=== PATIENT | male | born 1970 | race American Indian/Alaskan Native ===

== ENCOUNTER 2019-07-10 12:28 | Emergency (ER) | payer BC, MEDICAID ==
[2019-07-10 14:42] VITALS: BP 140/88
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
--- NOTE | 2019-07-10 16:04 | CRLCR ---
Indication: Pain. Technique: Three views of the left foot were obtained. Comparison: None Findings: Postoperative changes are identified at the level the calcaneus, distal 4th metatarsal and proximal 1st metatarsal. Around the distal 4th metatarsal, linear lucencies identified. Periosteal reaction is identified. This most likely all represents postoperative change. Extensive vascular calcifications are identified. Impression: Periosteal reaction and lucency identified around the screw at the level of the distal 4th metatarsal. This is most likely are related to post operative change. However, correlation with patient`s prior studies is recommended. Dictated by Rin Bellamy MD @ Jul 10 2019 4:00PM Signed by Dr. Rin Bellamy @ Jul 10 2019 4:02PM
== END 2019-07-10 16:41 | disposition home or self-care (01) ==
LOC: JP.ED 12:28
DX: M79.672 Pain in left foot (principal); I10 Essential (primary) hypertension; E11.9 Type 2 diabetes mellitus without complications; Z79.899 Other long term (current) drug therapy; Z79.4 Long term (current) use of insulin; Z87.891 Personal history of nicotine dependence
CPT/HCPCS: 73630-LT; 99283-25

== ENCOUNTER 2020-04-20 20:03 | Emergency (ER) | payer MEDICAID ==
[2020-04-20] MEDS ORDERED: Acetaminophen/HYDROcodone 325-5 MG Tab PO ONE (20:46)
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
--- NOTE | 2020-04-20 21:45 | CRLCR ---
INDICATION: Bowling ball dropped on foot TECHNIQUE: Foot radiograph 3 views left COMPARISON: 07/10/2019 FINDINGS: Bone: No acute fractures or aggressive bone lesions are identified. Old fracture deformities of the distal 3rd and 4th metatarsals are noted without interval change. Screw fixation of the 4th metatarsal head and proximal 1st metatarsal noted. There is also a lag screw present within the calcaneus. Joint: The visualized hindfoot, midfoot, and forefoot joints are unremarkable in appearance. No significant ankle effusion is seen. Soft tissue: Mild vascular soft tissue calcifications No radiopaque foreign bodies are seen. IMPRESSION: 1. No acute osseous injuries or abnormalities are noted. Dictated by Triston Fletcher MD @ 04/20/2020 9:43:56 PM Dictated by: Triston Fletcher MD @ 04/20/2020 21:44:01 (Electronically Signed)
[2020-04-20 22:04] VITALS: BP 138/86; PULSE 97
== END 2020-04-20 22:04 | disposition home or self-care (01) ==
LOC: JP.ED 20:03
DX: S90.32XA Contusion of left foot, initial encounter (principal); E78.00 Pure hypercholesterolemia, unspecified; I10 Essential (primary) hypertension; Z88.8 Allergy status to other drugs, medicaments and biological substances; Z79.4 Long term (current) use of insulin; Z79.899 Other long term (current) drug therapy; W20.8XXA Other cause of strike by thrown, projected or falling object, initial encounter
CPT/HCPCS: 73630; 99283; A9270

== ENCOUNTER 2020-07-14 18:40 | Emergency (ER) | payer MEDICAID ==
[2020-07-14 18:55] VITALS: BP 106/73; PULSE 84
[2020-07-14] MEDS ORDERED: Acetaminophen/oxyCODONE 325-5 MG Tab PO ONE (19:03)
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
--- NOTE | 2020-07-17 12:27 | CR ---
Toes Fifth Digit Lt T4 CLINICAL HISTORY: Crush injury FINDINGS: Patient has had a previous arthrodesis of the fourth metatarsal. There is also been surgical fixation at the first metatarsal. No acute fracture is identified. There are some mild hammertoe deformities IMPRESSION: Previous foot surgery No acute fracture or dislocation
== END 2020-07-14 19:34 | disposition home or self-care (01) ==
LOC: JP.ED 18:40
DX: S90.425A Blister (nonthermal), left lesser toe(s), initial encounter (principal); S90.122A Contusion of left lesser toe(s) without damage to nail, initial encounter; I10 Essential (primary) hypertension; E11.40 Type 2 diabetes mellitus with diabetic neuropathy, unspecified; Z79.4 Long term (current) use of insulin; Z88.5 Allergy status to narcotic agent; Z88.8 Allergy status to other drugs, medicaments and biological substances; Z79.899 Other long term (current) drug therapy; W22.8XXA Striking against or struck by other objects, initial encounter
CPT/HCPCS: 73660; 99283; A9270

== ENCOUNTER 2020-11-03 16:32 | Emergency (ER) | payer MEDICAID ==
[2020-11-03 16:56] VITALS: BP 119/76; PULSE 88
[2020-11-03] MEDS ORDERED: Ketorolac 60 MG/2 ML SDV IM ONE (17:10)
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
--- NOTE | 2020-11-06 09:24 | CR ---
CHEST: 2 view CLINICAL HISTORY:Dyspnea COMPARISON:None FINDINGS: Heart size and pulmonary vascular are normal. There is some minimal patchy density in the right infrahilar region which may represent some infiltrate or atelectasis in the right middle lobe. No effusion is seen Impression: Mild patchy indeterminate airspace disease in the right middle lobe
== END 2020-11-03 17:49 | disposition home or self-care (01) ==
LOC: JP.ED 16:32
DX: R07.89 Other chest pain (principal); E78.00 Pure hypercholesterolemia, unspecified; I10 Essential (primary) hypertension; E11.9 Type 2 diabetes mellitus without complications; Z88.8 Allergy status to other drugs, medicaments and biological substances; Z88.5 Allergy status to narcotic agent; Z79.899 Other long term (current) drug therapy
CPT/HCPCS: 71046; 71046-26; 96372; 99283; 99284-25; J1885

== ENCOUNTER 2021-01-30 14:29 | Emergency (ER) | payer MEDICAID ==
[2021-01-30 14:41] VITALS: BP 132/79; PULSE 67
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
[2021-01-30] MEDS ORDERED: Acetaminophen/HYDROcodone 325-5 MG Tab PO ONE (15:16)
--- NOTE | 2021-01-30 15:24 | CR ---
Toes Great Toe Rt T5 CLINICAL HISTORY: Recent surgery, stomach oh FINDINGS: Patient has had amputation of the second toe at the distal metatarsal. There is some osteoarthritic change in the interphalangeal joints. There is severe deformity of the third MTP joint. There is some periosteal reaction in the distal third metatarsal. No fracture or subluxation is identified IMPRESSION: Second toe amputation Moderate deformity of the third MTP joint with some old periosteal reaction in the distal metatarsal Osteoarthritic change
== END 2021-01-30 15:56 | disposition home or self-care (01) ==
LOC: JP.ED 14:29
DX: S90.111A Contusion of right great toe without damage to nail, initial encounter (principal); E78.00 Pure hypercholesterolemia, unspecified; I10 Essential (primary) hypertension; E11.9 Type 2 diabetes mellitus without complications; Z87.891 Personal history of nicotine dependence; Z86.16 Personal history of COVID-19; Z88.8 Allergy status to other drugs, medicaments and biological substances; Z88.5 Allergy status to narcotic agent; Z79.84 Long term (current) use of oral hypoglycemic drugs; Z79.899 Other long term (current) drug therapy; W23.0XXA Caught, crushed, jammed, or pinched between moving objects, initial encounter
CPT/HCPCS: 73660-26-T5; 73660-T5; 99283

== ENCOUNTER 2021-04-02 08:09 | Emergency (ER) | payer MEDICAID ==
[2021-04-02 08:28] VITALS: BP 130/79; PULSE 84
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
[2021-04-02] MEDS ORDERED: Acetaminophen/HYDROcodone 325-5 MG Tab PO ONE (09:16)
[2021-04-02] MEDS ORDERED: cefTRIAXone 2 GM, Lidocaine 1% 4.2 ML IM ONE ×2 (09:33)
--- NOTE | 2021-04-02 10:02 | CRLCR ---
Indication: Painful area on the bottom of the left great toe Comparison: Two-views toes January 30, 2021 Technique: AP, Lateral, and Oblique views right foot were obtained Findings: Prior amputation of the distal 2nd digit is again seen. Likely old traumatic changes of the distal 3rd metatarsal and 5th metatarsal are appreciated. Stable postoperative changes at the base of the 1st metatarsal. There are hammertoe deformities of the 1st, 3rd, 4th, and 5th digits. Stable degenerative changes of the interphalangeal joints are appreciated. There is mild superficial soft tissue prominence. Impression: Mild superficial soft tissue prominence without evidence of displaced fracture. No obvious bony erosion. Recommend follow-up with MRI with contrast if there is concern for underlying edema or enhancement commensurate with osteomyelitis. Dictated by Jose Watson MD @ 04/02/2021 10:01:[address] Jose Watson @ Apr 02 2021 10:01AM
== END 2021-04-02 10:06 | disposition home or self-care (01) ==
LOC: JP.ED 08:09
DX: S91.101A Unspecified open wound of right great toe without damage to nail, initial encounter (principal); L08.9 Local infection of the skin and subcutaneous tissue, unspecified; E78.00 Pure hypercholesterolemia, unspecified; I10 Essential (primary) hypertension; E11.9 Type 2 diabetes mellitus without complications; Z79.899 Other long term (current) drug therapy; Z79.84 Long term (current) use of oral hypoglycemic drugs; Z88.5 Allergy status to narcotic agent; Z88.8 Allergy status to other drugs, medicaments and biological substances; W45.0XXA Nail entering through skin, initial encounter
CPT/HCPCS: 36415; 73630-RT; 80053; 85025; 99283; 99283-25

== ENCOUNTER 2021-04-14 14:11 | Emergency (ER) | payer MEDICAID ==
[2021-04-14 14:34] VITALS: BP 106/80; PULSE 115
[2021-04-14] MEDS ORDERED: Ketorolac 30 MG/ML SDV IVPUSH ONE (14:55)
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
--- NOTE | 2021-04-17 09:37 | CR ---
FOOT RIGHT 3 views CLINICAL HISTORY:Chronic ulcer FINDINGS:There is soft tissue swelling in the plantar surface of the distal metatarsal region. No soft tissue air is detected Patient has had previous amputation of the second toe at the MTP joint. There is fusion at the first tarsal metatarsal junction with a fixation screw. There have been previous fractures of the third and fifth metatarsals. IMPRESSION: Moderate soft tissue swelling distal foot Multiple prior surgeries including second toe amputation
== END 2021-04-14 16:07 | disposition home or self-care (01) ==
LOC: JP.ED 14:11
DX: S90.31XA Contusion of right foot, initial encounter (principal); E11.40 Type 2 diabetes mellitus with diabetic neuropathy, unspecified; E11.51 Type 2 diabetes mellitus with diabetic peripheral angiopathy without gangrene; I10 Essential (primary) hypertension; Z79.84 Long term (current) use of oral hypoglycemic drugs; Z88.5 Allergy status to narcotic agent; Z88.8 Allergy status to other drugs, medicaments and biological substances; W22.8XXA Striking against or struck by other objects, initial encounter
CPT/HCPCS: 73630; 96374; 99283; J1885

== ENCOUNTER 2021-05-15 20:51 | Emergency (ER) | payer MEDICAID, OTHER ==
[2021-05-15] MEDS ORDERED: HYDROmorphone 1 MG/ML Syringe IVPUSH ONE (23:42)
[2021-05-15] MEDS ORDERED: Sodium Chloride 0.9% 10 ML Syringe FLUSH PRN (23:42)
[2021-05-15] MEDS ORDERED: Acetaminophen 325 MG Tab PO ONE (23:42)
[2021-05-15] MEDS ORDERED: Lactated Ringers 1,000 ML IV SCH (23:45)
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
[2021-05-16] MEDS: Piperacillin/Tazobactam 4.5 GM in Sodium Chloride 0.9% 100 ML IV SCH ×3 (01:04→05:56)
[2021-05-16] MEDS ORDERED: HYDROmorphone 1 MG/ML Syringe IVPUSH ONE (01:59)
[2021-05-16] MEDS ORDERED: fentaNYL 100 MCG/2 ML SDV IVPUSH ONE (04:02)
[2021-05-16] MEDS ORDERED: Cyclobenzaprine 10 MG Tab PO ONE (04:02)
[2021-05-16 05:51] VITALS: BP 138/68; PULSE 91
--- NOTE | 2021-05-16 09:11 | CR ---
CHEST: 2 view CLINICAL HISTORY:Fever COMPARISON:2020 FINDINGS: The heart size, pulmonary vascularity and hilar structures are normal. No infiltrate effusion or pneumothorax is seen. IMPRESSION: No acute cardiopulmonary process.
== END 2021-05-16 07:08 | disposition home or self-care (01) ==
LOC: JP.ED 20:51
DX: G89.18 Other acute postprocedural pain (principal); M79.604 Pain in right leg; E78.00 Pure hypercholesterolemia, unspecified; I10 Essential (primary) hypertension; E11.9 Type 2 diabetes mellitus without complications; Z79.84 Long term (current) use of oral hypoglycemic drugs; Z88.5 Allergy status to narcotic agent; Z88.8 Allergy status to other drugs, medicaments and biological substances; Z79.899 Other long term (current) drug therapy; Z87.891 Personal history of nicotine dependence
CPT/HCPCS: 36415; 71046; 80053; 81001; 83605; 84145; 85025; 86140; 87040; 96365; 96366; 96368; 96375; 96376; 99283; 99284; A9270; J1170; J2543; J3010; J3370; J7050; J7120

== ENCOUNTER 2021-05-21 17:25 | Emergency (ER) | payer MEDICAID ==
[2021-05-21 17:36] VITALS: BP 127/80; PULSE 97
[2021-05-21] MEDS ORDERED: Acetaminophen/oxyCODONE 325-5 MG Tab PO STA (17:43)
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
--- NOTE | 2021-05-22 09:01 | CR ---
FOOT RIGHT 3 views CLINICAL HISTORY:Fall, recent surgery FINDINGS:Patient has had previous a mid metatarsal amputations of one through 5. There is some deformity of the third proximal metatarsal similar to multiple prior studies. There is a fixation screw across the first tarsometatarsal joint. IMPRESSION: Recent mid tarsal amputation Prior fusion at the first tarsometatarsal joint. Old healed fractures of the second and third proximal metatarsals No acute findings
== END 2021-05-21 18:11 | disposition home or self-care (01) ==
LOC: JP.ED 17:25
DX: G89.18 Other acute postprocedural pain (principal); M79.671 Pain in right foot; E78.00 Pure hypercholesterolemia, unspecified; I10 Essential (primary) hypertension; E11.9 Type 2 diabetes mellitus without complications; Z88.5 Allergy status to narcotic agent; Z88.8 Allergy status to other drugs, medicaments and biological substances; Z79.84 Long term (current) use of oral hypoglycemic drugs; Z79.899 Other long term (current) drug therapy
CPT/HCPCS: 73630; 99283; A9270

== ENCOUNTER 2022-01-02 12:56 | Emergency (ER) | payer MEDICAID ==
[2022-01-02 13:11] VITALS: BP 130/90; PULSE 91
[2022-01-02] MEDS ORDERED: Acetaminophen/HYDROcodone 325-10 MG Tab PO ONE (13:15)
== END 2022-01-02 14:19 | disposition home or self-care (01) ==
LOC: JP.ED 12:56
DX: S60.222A Contusion of left hand, initial encounter (principal); E78.00 Pure hypercholesterolemia, unspecified; I10 Essential (primary) hypertension; E11.9 Type 2 diabetes mellitus without complications; Z88.5 Allergy status to narcotic agent; Z88.8 Allergy status to other drugs, medicaments and biological substances; Z79.84 Long term (current) use of oral hypoglycemic drugs; Z79.899 Other long term (current) drug therapy; W18.09XA Striking against other object with subsequent fall, initial encounter
CPT/HCPCS: 73130; 99283; A9270

== ENCOUNTER 2022-11-15 17:17 | Emergency (ER) | payer MEDICAID ==
[2022-11-15 18:51] VITALS: BP 161/80; PULSE 91
[2022-11-15 19:53] LABS: ESTIMATED GFR 66 mL/min (>60)
[2022-11-15] MEDS ORDERED: HYDROmorphone 0.5 MG/0.5 ML Syringe IM ONE (20:25)
[2022-11-15] MEDS ORDERED: Sodium Chloride 0.9% 10 ML Syringe FLUSH PRN (21:26)
[2022-11-15] MEDS ORDERED: cefTRIAXone 2 GM in Sodium Chloride 0.9% 50 ML IV ONE (21:26)
== END 2022-11-15 22:20 | disposition home or self-care (01) ==
LOC: JP.ED 17:17
DX: L03.116 Cellulitis of left lower limb (principal); E78.00 Pure hypercholesterolemia, unspecified; M19.90 Unspecified osteoarthritis, unspecified site; E11.9 Type 2 diabetes mellitus without complications; Z88.8 Allergy status to other drugs, medicaments and biological substances; Z79.84 Long term (current) use of oral hypoglycemic drugs; Z79.899 Other long term (current) drug therapy
CPT/HCPCS: 36415; 73610; 73630; 80053; 84550; 85025; 85379; 93971; 96365; 96372; 99283; J0696; J1170; J3490

== ENCOUNTER 2023-05-27 12:07 | Emergency (ER) | payer MEDICAID ==
[2023-05-27 12:14] VITALS: BP 99/62; PULSE 45
[2023-05-27 12:24] LABS: APPEARANCE,URINE CLEAR (CLEAR); BILIRUBIN,URINE NEGATIVE (NEGATIVE); COLOR,URINE YELLOW (YELLOW); GLUCOSE,URINE NEGATIVE (NEGATIVE); KETONES,URINE NEGATIVE (NEGATIVE); LEUKOCYTE ESTERASE,URINE NEGATIVE (NEGATIVE); NITRITE,URINE NEGATIVE (NEGATIVE); OCCULT BLOOD,URINE TRACE-INTACT (NEGATIVE); PROTEIN,URINE NEGATIVE (NEGATIVE); UROBILINOGEN,URINE 0.2 EU/dL (0.2-1.0)
[2023-05-27 12:28] LABS: AMPHETAMINES SCREEN, URINE NEGATIVE (NEGATIVE); BARBITURATE SCREEN,URINE NEGATIVE (NEGATIVE); BENZODIAZEPINES SCREEN,URINE NEGATIVE (NEGATIVE); METHAMPHETAMINES SCREEN, URINE NEGATIVE (NEGATIVE)
[2023-05-27 12:29] LABS: METHADONE SCREEN, URINE NEGATIVE (NEGATIVE); OXYCODONE SCREEN,URINE NEGATIVE (NEGATIVE); PROPOXYPHENE SCREEN,URINE NEGATIVE (NEGATIVE); THC SCREEN,URINE 50 NG/ML NEGATIVE (NEGATIVE)
[2023-05-27 12:29] LABS: AMORPHOUS SEDIMENT,URINE NOT SEEN; BACTERIA,URINE NOT SEEN; EPITHELIAL CELLS,URINE NOT SEEN; MUCUS,URINE NOT SEEN; RBC,URINE 0-5 (0-5); WBC,URINE NOT SEEN (0-5)
[2023-05-27 12:47] LABS: BASOPHILS ABSOLUTE AUTO 0.03 K/uL (0.00-0.10); BASOPHILS PERCENT AUTO 0.3 % (0.1-1.3); EOSINOPHILS ABSOLUTE AUTO 0.01 K/uL (0.00-0.40); EOSINOPHILS PERCENT AUTO 0.1 % (0.0-5.4); HEMATOCRIT 36.4 % (38.4-49.7); HEMOGLOBIN 12.4 g/dL (12.9-16.9); IMMATURE GRAN ABSOLUTE AUTO 0.05 K/uL (0.00-0.23); IMMATURE GRAN PERCENT AUTO 0.5 % (0.0-0.7); LYMPHOCYTES ABSOLUTE AUTO 1.65 K/uL (0.8-3.3); LYMPHOCYTES PERCENT AUTO 15.8 % (11.4-47.7); MEAN CORPUSCULAR HEMOGLOBIN 29.4 pg (31.6-35.5); MEAN CORPUSCULAR HGB CONC 34.1 g/dL (31.6-35.5); MEAN CORPUSCULAR VOLUME 86.3 fL (81.4-99.0); MONOCYTES ABSOLUTE AUTO 0.56 K/uL (0.20-0.90); MONOCYTES PERCENT AUTO 5.4 % (3.3-12.6); NEUTROPHILS ABSOLUTE AUTO 8.13 K/uL (1.0-7.6); NEUTROPHILS PERCENT AUTO 77.9 % (40.0-78.1); PLATELET COUNT,PLT 471 K/uL (130-375); RED BLOOD CELL COUNT 4.22 M/uL (4.14-5.76); WHITE BLOOD CELL COUNT,WBC 10.4 K/uL (3.2-11.0)
[2023-05-27 13:07] LABS: A/G RATIO 0.8 (1.2-2.2); ALANINE AMINOTRANSFERASE,ALT 22 U/L (12-78); ALBUMIN 3.8 g/dL (3.4-5.0); ALKALINE PHOSPHATASE 105 U/L (46-116); ASPARTATE AMNIOTRANSFERASE,AST 17 U/L (15-37); BILIRUBIN TOTAL 0.5 mg/dL (0.2-1.0); BLOOD UREA NITROGEN,BUN 9 mg/dL (7-18); CALCIUM 9.3 mg/dL (8.5-10.1); CARBON DIOXIDE,CO2 30 mmol/L (21-32); CHLORIDE,CL 101 mmol/L (100-108); CREATININE 0.9 mg/dL (0.8-1.3); EST CRCL DRUG DOSING (CG) 99.14 mL/min; ESTIMATED GFR 103 mL/min (>60); GLUCOSE RANDOM 193 mg/dL (74-106); POTASSIUM,K 4.8 mmol/L (3.6-5.2); PROTEIN TOTAL,TP 8.4 g/dL (6.4-8.2); SODIUM,NA 139 mmol/L (140-148)
[2023-05-27 13:08] LABS: ANION GAP 12.8 mmol/L (5.0-14.0)
== END 2023-05-27 13:55 | disposition home or self-care (01) ==
LOC: JP.ED 12:07
DX: R20.2 Paresthesia of skin (principal); G25.81 Restless legs syndrome; E78.00 Pure hypercholesterolemia, unspecified; E11.9 Type 2 diabetes mellitus without complications; Z86.16 Personal history of COVID-19; Z88.5 Allergy status to narcotic agent; Z88.8 Allergy status to other drugs, medicaments and biological substances; Z79.84 Long term (current) use of oral hypoglycemic drugs; Z79.899 Other long term (current) drug therapy
CPT/HCPCS: 36415; 74176; 74176-26; 80053; 80305-QW; 81001; 85025; 99284

== ENCOUNTER 2023-06-12 21:04 | Emergency (ER) | payer MEDICAID ==
[2023-06-12] MEDS ORDERED: Lidocaine 1% 5 ML VIAL INJECT ONE (22:54)
[2023-06-12] MEDS ORDERED: Bacitracin Oint 1 GM U/D Packet TOP ONE (22:54)
[2023-06-13 00:03] VITALS: BP 131/70; PULSE 43
[2023-06-13] MEDS ORDERED: Acetaminophen/HYDROcodone 325-5 MG Tab PO STA (00:25)
== END 2023-06-13 00:08 | disposition home or self-care (01) ==
LOC: JP.ED 21:04
DX: S91.312A Laceration without foreign body, left foot, initial encounter (principal); E78.00 Pure hypercholesterolemia, unspecified; E11.9 Type 2 diabetes mellitus without complications; Z86.16 Personal history of COVID-19; Z79.84 Long term (current) use of oral hypoglycemic drugs; Z79.899 Other long term (current) drug therapy; Z88.8 Allergy status to other drugs, medicaments and biological substances; Z88.5 Allergy status to narcotic agent; W26.8XXA Contact with other sharp object(s), not elsewhere classified, initial encounter
CPT/HCPCS: 12001; 73630; 99283; A9270

== ENCOUNTER 2025-04-19 20:17 | Emergency (ER) | payer MEDICAID, MEDICARE ==
[2025-04-19] MEDS: Cyclobenzaprine 10 MG Tab PO ONE (21:10)
[2025-04-19] MEDS: Ketorolac 30 MG/ML SDV IM ONE (21:11)
[2025-04-19] MEDS ORDERED: Naloxone 0.4 MG/ML SDV IVPUSH PRN (21:48)
[2025-04-19 21:51] VITALS: BP 172/103; PULSE 84
[2025-04-19] MEDS: HYDROmorphone 1 MG/ML Syringe IM ONE (21:53)
== END 2025-04-19 22:48 | disposition home or self-care (01) ==
LOC: JP.ED 20:17
DX: M54.16 Radiculopathy, lumbar region (principal); I10 Essential (primary) hypertension; E11.9 Type 2 diabetes mellitus without complications; Z86.16 Personal history of COVID-19; Z88.5 Allergy status to narcotic agent; Z88.8 Allergy status to other drugs, medicaments and biological substances; Z79.899 Other long term (current) drug therapy
CPT/HCPCS: 96372; 99283; A9270; J1171; J1885

== ENCOUNTER 2025-09-18 20:03 | Emergency (ER) | payer MEDICARE ==
[2025-09-18 20:45] LABS: BASOPHILS ABSOLUTE AUTO 0.09 K/uL (0.00-0.10); BASOPHILS PERCENT AUTO 0.5 % (0.1-1.3); EOSINOPHILS ABSOLUTE AUTO 0.13 K/uL (0.00-0.40); EOSINOPHILS PERCENT AUTO 0.8 % (0.0-5.4); IMMATURE GRAN ABSOLUTE AUTO 0.08 K/uL (0.00-0.23); IMMATURE GRAN PERCENT AUTO 0.5 % (0.0-0.7); LYMPHOCYTES ABSOLUTE AUTO 1.78 K/uL (0.8-3.3); LYMPHOCYTES PERCENT AUTO 10.4 % (11.4-47.7); MONOCYTES ABSOLUTE AUTO 0.94 K/uL (0.20-0.90); MONOCYTES PERCENT AUTO 5.5 % (3.3-12.6); NEUTROPHILS ABSOLUTE AUTO 14.06 K/uL (1.0-7.6); NEUTROPHILS PERCENT AUTO 82.3 % (40.0-78.1); PLATELET COUNT,PLT 380 K/uL (130-375); RED BLOOD CELL COUNT 3.57 M/uL (4.14-5.76); WHITE BLOOD CELL COUNT,WBC 17.1 K/uL (3.2-11.0)
[2025-09-18 21:09] LABS: A/G RATIO 1.2 (1.2-2.2); ALANINE AMINOTRANSFERASE,ALT 20 U/L (12-78); ASPARTATE AMNIOTRANSFERASE,AST 13 U/L (15-37); BILIRUBIN TOTAL 0.3 mg/dL (0.2-1.0); BLOOD UREA NITROGEN,BUN 21 mg/dL (7-18); CARBON DIOXIDE,CO2 30 mmol/L (21-32); CHLORIDE,CL 101 mmol/L (100-108); CREATININE 1.8 mg/dL (0.8-1.3); EST CRCL DRUG DOSING (CG) 46.37 mL/min; ESTIMATED GFR 44 mL/min (>60); GLUCOSE RANDOM 117 mg/dL (74-106); POTASSIUM,K 4.0 mmol/L (3.6-5.2); PROTEIN TOTAL,TP 7.2 g/dL (6.4-8.2); SODIUM,NA 138 mmol/L (140-148); TROPONIN I HIGH SENSITIVITY 13.3 pg/mL (<=60.3)
[2025-09-18 22:19] LABS: APPEARANCE,URINE CLEAR (CLEAR); GLUCOSE,URINE NEGATIVE (NEGATIVE); OCCULT BLOOD,URINE NEGATIVE (NEGATIVE)
[2025-09-18 22:22] LABS: AMPHETAMINES SCREEN, URINE NEGATIVE (NEGATIVE); METHADONE SCREEN, URINE NEGATIVE (NEGATIVE); METHAMPHETAMINES SCREEN, URINE NEGATIVE (NEGATIVE); OXYCODONE SCREEN,URINE NEGATIVE (NEGATIVE); PROPOXYPHENE SCREEN,URINE NEGATIVE (NEGATIVE); THC SCREEN,URINE 50 NG/ML NEGATIVE (NEGATIVE)
[2025-09-18 22:32] LABS: SQUAMOUS EPITHELIAL CELLS,UR RARE /HPF; UROTHELIAL CELLS,URINE NOT SEEN /HPF
[2025-09-18 23:14] VITALS: BP 134/78; PULSE 86
== END 2025-09-18 23:10 | disposition home or self-care (01) ==
LOC: JP.ED 20:03
DX: R55 Syncope and collapse (principal); S09.90XA Unspecified injury of head, initial encounter; E86.0 Dehydration; I10 Essential (primary) hypertension; E11.9 Type 2 diabetes mellitus without complications; Z88.8 Allergy status to other drugs, medicaments and biological substances; Z79.84 Long term (current) use of oral hypoglycemic drugs; Z79.899 Other long term (current) drug therapy; Z86.16 Personal history of COVID-19; Z87.891 Personal history of nicotine dependence; W19.XXXA Unspecified fall, initial encounter
CPT/HCPCS: 36415; 70450; 71046; 73502; 80053; 80305; 80307; 81001; 83605; 84484; 85025; 93005; 96360; 99284; A9270; J7030